=== PATIENT | male | born 1955 | race Caucasian/White ===

== ENCOUNTER 2020-05-30 10:48 | Emergency (ER) | payer MEDICARE ==
[~2020-05-30] VITALS: Ht 170.2 cm; Wt 79.4 kg
== END 2020-05-30 13:13 | disposition home or self-care (01) ==
LOC: ER 10:48
DX: S90.822A Blister (nonthermal), left foot, initial encounter (principal); S90.821A Blister (nonthermal), right foot, initial encounter; Z59.0 Homelessness; X58.XXXA Exposure to other specified factors, initial encounter
CPT/HCPCS: 99283